=== PATIENT | male | born 1960 | race Caucasian/White ===

== ENCOUNTER 2022-09-07 10:00 | Emergency (ER) | payer BC, OTHER ==
[2022-09-07] MEDS ORDERED: Sodium Chloride 0.9% 10 ML Syringe FLUSH PRN (10:12)
[2022-09-07] MEDS ORDERED: Albuterol/Ipratropium 3.0-0.5 MG/3 ML Neb Soln NEB ONE (10:13)
[2022-09-07 11:00] LABS: CORONAVIRUS COVID-19 NAA NEGATIVE (NEGATIVE)
[2022-09-07 11:07] LABS: ESTIMATED GFR 101 mL/min (>60)
[2022-09-07] MEDS ORDERED: Albuterol 6.7 GM Inhaler INH ONE (12:27)
== END 2022-09-07 13:04 | disposition home or self-care (01) ==
LOC: JD.ED 10:00 → SUPCPDRO 10:00 → JD.ED 13:04
DX: J44.1 Chronic obstructive pulmonary disease with (acute) exacerbation (principal); Z79.899 Other long term (current) drug therapy; Z20.822 Contact with and (suspected) exposure to COVID-19
CPT/HCPCS: 0241U; 36415; 71045; 80053; 83735; 84484; 85025; 86140; 93005; 94640; 99285; A9270; J3490; 93010; 99284; J7620-GY